=== PATIENT | male | born 1995 | race American Indian/Alaskan Native ===

== ENCOUNTER 2019-06-29 10:35 | Emergency (ER) | payer BC, MEDICAID ==
[2019-06-29 11:01] VITALS: BP 134/89
[2019-06-29] MEDS ORDERED: LIDOCAINE (1%) 10 MG/1 ML VIAL 20 ML MDV INFILTRATI ONE (11:48)
--- NOTE | 2019-06-29 11:54 | Emergency Department Report ---
<NAE REGALADO - Last Filed: 06/29/19 15:04> ED General Adult HPI - General Chief complaint: Extremity Injury, Lower Stated complaint: LFT FOOT SWELLING 2DAYS/PAIN Time Seen by Provider: 06/29/19 11:29 Source: patient Mode of arrival: Ambulatory Limitations: No Limitations - History of Present Illness Initial comments: 23-year-old -[place] male patient without significant past medical history presents with complaints of left foot pain and swelling x4 days. Patient states he noticed a pimple on his left great toe that was tender. He states after popping the pimple on Saturday the swelling began the next morning. Patient states he was seen at an urgent care and prescribed Keflex 3 times daily. He reports he has taken 4 doses so far, however his symptoms have not improved. He rates his current pain is 8/10 in severity and states it worsens with walking. He denies any fever/chills/sweats. -: Sudden - Related Data Previous Rx's Medication Instructions Recorded Last Taken Type Acetaminophen/Codeine [Tylenol 1 tab PO Q8H PRN #6 tab 06/29/19 Unknown Rx /Codeine # 3 tab] Ibuprofen [Motrin 800 MG tab] 800 mg PO Q8HR PRN #21 tablet 06/29/19 Unknown Rx Sulfamethoxazole/Trimethoprim 1 each PO BID 10 Days #20 tablet 06/29/19 Unknown Rx [Bactrim DS TAB] Allergies Allergy/AdvReac Type Severity Reaction Status Date / Time No Known Allergies Allergy Unverified 06/29/19 11:04 ED Review of Systems Constitutional: denies: chills, fever Respiratory: denies: shortness of breath Endocrine: denies: excessive sweating Gastrointestinal: denies: nausea, vomiting Musculoskeletal: joint swelling, arthralgia Skin: change in color Neurological: denies: headache, weakness, numbness, paresthesias Hematological/Lymphatic: denies: swollen glands ED Past Medical Hx - Past Medical History Previous Medical History?: No - Social History Smoking Status: Never Smoker Substance Use Type: None - Medications Home Medications: Home Medications Medication Instructions Recorded Confirmed Last Taken Type Acetaminophen/Codeine [Tylenol 1 tab PO Q8H PRN #6 tab 06/29/19 Unknown Rx /Codeine # 3 tab] Ibuprofen [Motrin 800 MG tab] 800 mg PO Q8HR PRN #21 tablet 06/29/19 Unknown Rx Sulfamethoxazole/Trimethoprim 1 each PO BID 10 Days #20 tablet 06/29/19 Unknown Rx [Bactrim DS TAB] ED Physical Exam - General Limitations: No Limitations General appearance: alert, in no apparent distress - Head Head exam: Present: atraumatic, normocephalic - Eye Eye exam: Present: normal appearance. Absent: scleral icterus - Neck Neck exam: Present: normal inspection - Respiratory Respiratory exam: Present: normal lung sounds bilaterally. Absent: respiratory distress - Cardiovascular Cardiovascular Exam: Present: regular rate, normal rhythm. Absent: systolic murmur, diastolic murmur, rubs, gallop - Back Exam Back exam: Present: full ROM - Neurological Exam Neurological exam: Present: alert, oriented X3 - Psychiatric Psychiatric exam: Present: normal affect, normal mood - Skin Skin exam: Present: warm, dry, intact, erythema, other (2 mm opening noted with serous/bloody discharge overlying the left MTP joint with surrounding cellulitis and swelling of the left foot. There is decreased flexion of the toes. Normal perfusion and sensation of the foot and toes noted.) ED Medical Decision Making - Lab Data Result diagrams: 06/29/19 11:53 06/29/19 11:53 Lab Results 06/29/19 06/29/19 06/29/19 Range/Units 11:53 11:53 12:42 WBC 14.2 H (4.5-11.0) K/mm3 RBC 4.97 (3.65-5.03) M/mm3 Hgb 13.7 (11.8-15.2) gm/dl Hct 41.1 (35.5-45.6) % MCV 83 L (84-94) fl MCH 28 (28-32) pg MCHC 33 (32-34) % RDW 14.0 (13.2-15.2) % Plt Count 411 (140-440) K/mm3 Lymph % (Auto) 11.3 L (13.4-35.0) % [place] % (Auto) 7.4 H (0.0-7.3) % Eos % (Auto) 0.2 (0.0-4.3) % Baso % (Auto) 0.0 (0.0-1.8) % Lymph # 1.6 (1.2-5.4) K/mm3 [place] # 1.0 H (0.0-0.8) K/mm3 Eos # 0.0 (0.0-0.4) K/mm3 Baso # 0.0 (0.0-0.1) K/mm3 Seg Neutrophils % 81.1 H (40.0-70.0) % Seg Neutrophils # 11.5 H (1.8-7.7) K/mm3 Sodium 140 (137-145) mmol/L Potassium 4.5 (3.6-5.0) mmol/L Chloride 100.9 (98-107) mmol/L Carbon Dioxide 27 (22-30) mmol/L Anion Gap 17 mmol/L BUN 11 (9-20) mg/dL Creatinine 1.1 (0.8-1.5) mg/dL Estimated GFR > 60 ml/min BUN/Creatinine Ratio 10 % Glucose 84 (75-100) mg/dL Lactic Acid 1.50 (0.7-2.0) mmol/L Calcium 9.8 (8.4-10.2) mg/dL Total Bilirubin 0.60 (0.1-1.2) mg/dL AST 13 (5-40) units/L ALT 9 (7-56) units/L Alkaline Phosphatase 84 (35-129) units/L Total Protein 7.8 (6.3-8.2) g/dL Albumin 4.4 (3.9-5) g/dL Albumin/Globulin Ratio 1.3 % - Radiology Data Radiology results: report reviewed LEFT FOOT 3 VIEWS INDICATION / CLINICAL INFORMATION: abcess over 1st MTP joint with cellulitis COMPARISON: None available. FINDINGS: BONES / JOINT(S): No acute fracture or subluxation. No significant arthritis. SOFT TISSUES: No significant abnormality. ADDITIONAL FINDINGS: None. - Medical Decision Making Patient presents with complaints of left foot pain and swelling for 4 days. Patient has taken 4 doses of Keflex 500 mg which was prescribed by an urgent care he was seen at on Saturday. Foot is noted to be moderately swollen with cellulitic changes on exam. Patient states symptoms are worsening. X-ray of foot is normal. WBCs are elevated at 14.2. Lactic acid is normal. Discussed patient in detail with Dr. Mead who recommends admission. Discussed importance of admission for treatment with IV antibiotics and possibility of worsening infection with only outpatient treatment, patient declines admission and states he would like to try oral antibiotics at home. Patient was given an IV dose of clindamycin and vancomycin. Blood cultures and wound culture he is afebrile and non-tachycardic. Will discharge home on Bactrim. Discussed in great detail signs and symptoms that should prompt immediate return to the emergency d epartment, patient verbalizes understanding. ED Disposition Clinical Impression: Cellulitis of left foot Disposition: DC-01 TO HOME OR SELFCARE Is pt being admited?: No Condition: Stable Instructions: Cellulitis (ED) Prescriptions: Sulfamethoxazole/Trimethoprim [Bactrim DS TAB] 1 each PO BID 10 Days #20 tablet Ibuprofen [Motrin 800 MG tab] 800 mg PO Q8HR PRN #21 tablet PRN Reason: pain Acetaminophen/Codeine [Tylenol /Codeine # 3 tab] 1 tab PO Q8H PRN #6 tab PRN Reason: severe pain Referrals: [facility] MD ELLA [Primary Care Provider] - 07/01/19 (For follow up and reevaluation of foot infection ) <TOM MEAD - Last Filed: 06/29/19 15:34> ED Review of Systems ROS: Stated complaint: LFT FOOT SWELLING 2DAYS/PAIN Other details as noted in HPI ED Course Vital Signs 06/29/19 10:58 Temperature 99.1 F Pulse Rate 99 H Respiratory 12 Rate Blood Pressure 134/89 O2 Sat by Pulse 100 Oximetry - Reevaluation(s) Reevaluation #1: I counseled the patient that admission was necessary. He was mentally competent. He signed out AGAINST MEDICAL ADVICE accepting the risks and understanding benefits. 06/29/19 15:33 06/29/19 15:34 ED Medical Decision Making - Lab Data Result diagrams: 06/29/19 11:53 06/29/19 11:53 Critical care attestation.: If time is entered above; I have spent that time in minutes in the direct care of this critically ill patient, excluding procedure time. ED Disposition Is pt being admited?: No Does the pt Need Aspirin: No Time of Disposition: 15:34
[2019-06-29 12:11] LABS: Eosinophils % (Auto) 0.2 % (0.0-4.3); Hematocrit 41.1 % (35.5-45.6); Hemoglobin 13.7 gm/dl (11.8-15.2); Lymphocytes # (Auto) 1.6 K/mm3 (1.2-5.4); Lymphocytes % (Auto) 11.3 % (13.4-35.0); Mean Corpuscular HGB Conc 33 % (32-34); Mean Corpuscular Volume 83 fl (84-94); Monocytes % (Auto) 7.4 % (0.0-7.3); Platelet Count 411 K/mm3 (140-440); Red Blood Count 4.97 M/mm3 (3.65-5.03)
--- NOTE | 2019-06-29 12:25 | XRay Report ---
LEFT FOOT 3 VIEWS INDICATION / CLINICAL INFORMATION: abcess over 1st MTP joint with cellulitis COMPARISON: None available. FINDINGS: BONES / JOINT(S): No acute fracture or subluxation. No significant arthritis. SOFT TISSUES: No significant abnormality. ADDITIONAL FINDINGS: None. Signer Name: Bandar Quinones MD Signed: 06/29/2019 12:21 PM Workstation Name: [id number]
[2019-06-29 12:32] LABS: Alanine Aminotransferase 9 units/L (7-56); Albumin 4.4 g/dL (3.9-5); BUN/Creatinine Ratio 10; Blood Urea Nitrogen 11 mg/dL (9-20); Calcium 9.8 mg/dL (8.4-10.2); Hemolysis Index 15
[2019-06-29] MEDS ORDERED: VANCOMYCIN 2,000 MG in SODIUM CHLORIDE 0.9% 500 ML 500 ML IV ONE (13:30)
== END 2019-06-29 16:07 | disposition home or self-care (01) ==
LOC: ED 10:35
DX: L03.116 Cellulitis of left lower limb (principal); Z79.899 Other long term (current) drug therapy
CPT/HCPCS: 36415; 73630; 80053; 82140; 85025; 87040; 87116; 96365; 96367; 99284; J3370; J7040